=== PATIENT | male | born 1930 | race Caucasian/White ===

== ENCOUNTER 2016-07-12 07:13 | Outpatient (CLI) | payer MEDICARE ==
[2016-07-12 08:04] LABS: ALT (SGPT) 23 U/L (0-55); AST (SGOT) 36 U/L (5-34); Alkaline Phosphatase 157 U/L (40-150); Anion Gap 15 mmol/L (10-20); BUN (Urea Nitrogen) 18 mg/dL (8.4-25.7); Bilirubin, Total 0.4 mg/dL (0.2-1.2); Calc. Creatinine Clearance 0 mL/min (70-130); Calcium 8.3 mg/dL (7.8-10.44); Carbon Dioxide 20 mmol/L (23-31); Chloride 104 mmol/L (98-107); Estimated GFR-MDRD 88; Globulin 3.7 g/dL (2.4-3.5); Protein, Total 6.9 g/dL (5.8-8.1)
[2016-07-12 10:08] LABS: Bilirubin Negative (Negative); Blood, Urine Trace (Negative); Glucose, Urine (Dipstick) Negative (Negative); Ketone, Urine Negative (Negative); Nitrite Positive (Negative); Protein, Urine (Dipstick) Negative (Neg-Trace); Urobilinogen 0.2 mg/dL (0.2-1.0)
[2016-07-12 10:20] LABS: Bacteria/HPF Rare-Few HPF (None Seen); RBC/HPF 0-3 HPF (0-3); Squamous Epithelial 0-3 HPF (0-3); WBC/HPF 21-50 HPF (0-3)
[2016-07-12 11:09] LABS: Hematocrit 29.5 % (42.0-52.0); Mean Platelet Volume 6.1 fL (7.4-10.4); Red Blood Cell (RBC) Count 3.21 mill/uL (4.70-6.10); White Blood Cell (WBC) Count 3.7 thou/uL (4.8-10.8)
[2016-07-12 11:10] LABS: Band 2 % (5-11); Neutrophil 67 % (42-75); Vacuoles SLIGHT
== END 2016-07-12 07:14 | disposition home or self-care (01) ==
LOC: NAV LABSP 07:13
PROVIDERS: ATTEND Family Medicine
DX: N39.0 Urinary tract infection, site not specified (principal); I10 Essential (primary) hypertension; E86.0 Dehydration
CPT/HCPCS: 36415; 80053; 81001; 85025; 87086

== ENCOUNTER 2016-09-14 00:06 | Outpatient (CLI) | payer MEDICARE, MEDICAID | END 2016-09-14 00:07 | disposition home or self-care (01) | LOC: NAV LABSP 00:06 | PROVIDERS: ATTEND Family Medicine | DX: E03.9 Hypothyroidism, unspecified (principal); K59.00 Constipation, unspecified; E86.0 Dehydration; R41.82 Altered mental status, unspecified | CPT/HCPCS: 87015; 87045; 87046; 87177; 87324; 87449; 87899 ==

== ENCOUNTER 2016-10-13 07:52 | Outpatient (CLI) | payer MEDICARE, MEDICAID | END 2016-10-13 07:53 | disposition home or self-care (01) | LOC: NAV LABSP 07:52 | PROVIDERS: ATTEND Family Medicine | DX: E03.9 Hypothyroidism, unspecified (principal); I10 Essential (primary) hypertension; F17.200 Nicotine dependence, unspecified, uncomplicated; E86.0 Dehydration; G47.00 Insomnia, unspecified; R41.82 Altered mental status, unspecified; R19.7 Diarrhea, unspecified | CPT/HCPCS: 36415; 84443 ==

== ENCOUNTER 2016-11-20 10:05 | Outpatient (CLI) | payer MEDICARE, MEDICAID ==
[2016-11-20 11:07] LABS: Free T4 (Free Thyroxine) 0.95 ng/dL (0.70-1.48); Thyroid Stimulating Hormone 4.7457 uIU/mL (0.35-4.94)
== END 2016-11-20 10:06 | disposition home or self-care (01) ==
LOC: NAV LABSP 10:05
PROVIDERS: ATTEND Family Medicine
DX: E03.9 Hypothyroidism, unspecified (principal); R41.82 Altered mental status, unspecified
CPT/HCPCS: 36415; 84439; 84443

== ENCOUNTER 2017-02-09 07:56 | Outpatient (CLI) | payer MEDICARE, OTHER ==
[2017-02-09 09:01] LABS: #Basophils 0.1 thou/uL (0.0-0.2); #Eosinphils 0.2 thou/uL (0.0-0.7); #Lymphocytes 0.7 thou/uL (1.20-3.40); #Monocytes 0.3 thou/uL (0.11-0.59); #Neutrophils 1.2 thou/uL (1.40-6.50); %Basophils 2.5 % (0.0-1.0); %Eosinophils 6.5 % (0.0-10.0); %Lymphocytes 29.2 % (21.0-51.0); %Monocytes 13.3 % (0.0-10.0); %Neutrophils 48.6 % (42.0-75.0); Mean Corpuscular HGB CONC 31.8 g/dL (32.0-36.0); Mean Corpuscular Hemoglobin 30.2 pg (27.0-31.0); Mean Corpuscular Volume 95.1 fl (80.0-94.0); Mean Platelet Volume 6.1 fL (7.4-10.4); Platelet Count 343 thou/uL (130-400); RBC Distribution Width 14.3 % (11.5-14.5); Red Blood Cell (RBC) Count 3.31 mill/uL (4.70-6.10); White Blood Cell (WBC) Count 2.5 thou/uL (4.8-10.8)
[2017-02-09 09:08] LABS: ALT (SGPT) 28 U/L (8-55); AST (SGOT) 30 U/L (5-34); Albumin 3.3 g/dL (3.4-4.8); Alkaline Phosphatase 157 U/L (40-150); Anion Gap 12 mmol/L (10-20); BUN (Urea Nitrogen) 17 mg/dL (8.4-25.7); Bilirubin, Total 0.3 mg/dL (0.2-1.2); Calc. Creatinine Clearance 0 mL/min (70-130); Calcium 8.7 mg/dL (7.8-10.44); Carbon Dioxide 28 mmol/L (23-31); Chloride 106 mmol/L (98-107); Estimated GFR-MDRD Greater than 90; Globulin 3.6 g/dL (2.4-3.5); Glucose 83 mg/dL (83-110); Protein, Total 6.9 g/dL (5.8-8.1); Sodium 142 mmol/L (136-145)
[2017-02-09 09:29] LABS: Free T4 (Free Thyroxine) 1.01 ng/dL (0.70-1.48); Thyroid Stimulating Hormone 4.7756 uIU/mL (0.35-4.94)
== END 2017-02-09 07:57 | disposition home or self-care (01) ==
LOC: NAV LABSP 07:56
PROVIDERS: ATTEND Family Medicine
DX: E86.0 Dehydration (principal); R41.82 Altered mental status, unspecified; R19.7 Diarrhea, unspecified; N40.0 Benign prostatic hyperplasia without lower urinary tract symptoms; R52 Pain, unspecified; K59.00 Constipation, unspecified; I10 Essential (primary) hypertension
CPT/HCPCS: 36415; 80053; 84439; 84443; 85025

== ENCOUNTER 2017-03-16 15:41 | Emergency (ER) | payer MEDICARE, OTHER ==
[~2017-03-16 15:41] MED LIST: Iodixanol 320 MG/ML (100 ML BOT) ONE
[2017-03-16] MEDS ORDERED: Ondansetron HCl/PF 4 MG/2 ML Vial ONE (15:51)
[2017-03-16] MEDS ORDERED: Fentanyl 100 MCG/2 ML VIAL ONE ×2 (16:08→17:59)
[2017-03-16 16:12] LABS: #Basophils 0.1 thou/uL (0.0-0.2); #Lymphocytes 0.4 thou/uL (1.20-3.40); #Monocytes 0.4 thou/uL (0.11-0.59); %Basophils 0.9 % (0.0-1.0); %Lymphocytes 6.4 % (21.0-51.0); %Monocytes 6.7 % (0.0-10.0); Mean Corpuscular HGB CONC 31.6 g/dL (32.0-36.0); Mean Corpuscular Hemoglobin 29.9 pg (27.0-31.0); Mean Corpuscular Volume 94.5 fl (80.0-94.0); Mean Platelet Volume 6.4 fL (7.4-10.4); Platelet Count 260 thou/uL (130-400); White Blood Cell (WBC) Count 5.8 thou/uL (4.8-10.8)
[2017-03-16 16:26] LABS: ALT (SGPT) 18 U/L (8-55); AST (SGOT) 19 U/L (5-34); Albumin 3.4 g/dL (3.4-4.8); Alkaline Phosphatase 108 U/L (40-150); Anion Gap 18 mmol/L (10-20); BUN (Urea Nitrogen) 20 mg/dL (8.4-25.7); Bilirubin, Total 0.6 mg/dL (0.2-1.2); Calc. Creatinine Clearance 0 mL/min (70-130); Calcium 8.7 mg/dL (7.8-10.44); Carbon Dioxide 24 mmol/L (23-31); Chloride 102 mmol/L (98-107); Estimated GFR-MDRD 58; Globulin 3.4 g/dL (2.4-3.5); Glucose 166 mg/dL (83-110); Potassium 4.3 mmol/L (3.5-5.1); Protein, Total 6.8 g/dL (5.8-8.1); Sodium 140 mmol/L (136-145)
[2017-03-16] MEDS ORDERED: Levofloxacin 500 mg/D5W 100 ml Premix Bag ONE (18:04)
[2017-03-16] MEDS ORDERED: Naloxone HCl 0.4 mg/ml Vial ONE ×2 (18:15→19:04)
[2017-03-16] MEDS ORDERED: methylPREDNISolone Sod Succ/PF 125 MG/2 ML VIAL ONE (18:17)
--- NOTE | 2017-03-16 21:01 | CT ---
EXAM: ABDOMEN CT WITH CONTRAST PELVIC CT WITH CONTRAST 03/16/17 HISTORY: Abdominal pain. Hypotension. Low hemoglobin and hematocrit. Evaluate for peritonitis. COMPARISON: None. TECHNIQUE: An abdomen and pelvic CT are performed with IV contrast. Coronal reformatted images are submitted fo r interpretation. FINDINGS: ABDOMEN CT: Small left and trace right sided pleural effusion. There are linear opacities in the left lung base which may be due to atelectasis with resultant elevation of the left hemidiaphragm. Heart size is wi thin normal limits. No pericardial effusion. Descending thoracic aorta and abdominal aorta have an overall normal caliber. No periaortic fat stranding. Symmetric attenuation of the psoas muscles. There is marked amount of fluid in the thoracic esophagus. The gastric mucosa is grossly unremarkabl e. There are multiple fluid filled loops of distended small bowel with fecalization. Findings are wo rrisome for high grade obstruction. A component of pneumatosis could easily be missed given the degr ee of fecalization. Evaluation of the ileocecal junction is limited on this exam. The exact transiti on segment is difficult to appreciate but may be on axial image 56 and coronal image 94. There is sc attered frequent material and air in what appears to be a nondistended, nondilated colon. Evaluation of colon is also limited on this examination. Specifically, the descending colon and sigmoid colon are suboptimally visualized. Limited evaluation of the solid organs. Grossly, the liver is unremarkable. A mildly atrophic pancre as is noted. There is symmetric enhancement of the kidneys. There is loss of normal enhancement of t he cortex involving the upper pole of the left kidney, possibly due to nephrogram phase. Correlate f or possible pyelonephritis. Adrenal glands are grossly unremarkable. There is a significant amount of free fluid in the abdomen with attenuation coefficient of 36 Hounsf ield units suggesting complex fluid. Obvious pneumoperitoneum is not appreciated on the current exam . No mass or lymphadenopathy. PELVIC CT: Urinary bladder is decompressed. There is free fluid in the pelvis. No mass, lymphadenopathy or carli e air. There is extensive osteopenic changes of the osseous structures. There appear to be lucent lesions i nvolving the distal thoracic and lumbar spine, incompletely evaluated. There is marked degenerative change in the right hip and moderate degenerative change in the left hip. IMPRESSION: 1. Multiple fluid filled loops of small bowel with fecalization. There is concern for high grad e obstruction. The exact origin of this obstruction is uncertain but may represent mid to distal sm all bowel loops. Given the presence of fecalization, a component of pneumatosis cannot be excluded. General surgical consultation is strongly recommended. 2. Possible pyelonephritis involving the upper pole of the left kidney. Correlate with urinaly sis. 3. Complex free fluid in the abdomen or pelvis. POS: [facility]
--- NOTE | 2017-03-16 21:54 | RAD ---
EXAM: ONE VIEW CHEST 03/16/17 HISTORY: Status post NG tube placement. Sepsis. COMPARISON: None. FINDINGS: There is a nasogastric tube entering the right main stem bronchus and terminating in the right lower lobe. Heart size is within normal limits. There are pleural and parenchymal changes in the left demetrio g base. No pneumothorax. IMPRESSION: Nasogastric tube terminating in the right lower lobe. Repositioning is recommended. Results of the study discussed with Dr. Sahni, 03/16/17 at 7:15 p.m. POS: [facility]
== END 2017-03-16 19:02 | disposition short-term general hospital (02) ==
LOC: NAV ERS 15:41
DX: K63.1 Perforation of intestine (nontraumatic) (principal); K56.60 Unspecified intestinal obstruction; I10 Essential (primary) hypertension; E03.9 Hypothyroidism, unspecified; F17.200 Nicotine dependence, unspecified, uncomplicated; G47.00 Insomnia, unspecified; F03.90 Unspecified dementia, unspecified severity, without behavioral disturbance, psychotic disturbance, mood disturbance, and anxiety; K59.00 Constipation, unspecified; N40.0 Benign prostatic hyperplasia without lower urinary tract symptoms; Z79.891 Long term (current) use of opiate analgesic; Z79.899 Other long term (current) drug therapy
CPT/HCPCS: 71010; 74177; 80053; 83605; 83880; 85025; 86140; 87040; 87149; 96361; 96365; 96375; 96376; 99292; J1170; J1956; J2270; J2310; J2405; J2930; J3010; Q9967